=== PATIENT | female | born 1950 | race African-American/Black ===

== ENCOUNTER 2017-05-07 21:32 | Observation (INO) | payer MEDICARE ==
[2017-05-07 22:14] LABS: #Basophils 0.1 thou/uL (0.0-0.2); #Eosinphils 0.1 thou/uL (0.0-0.7); #Lymphocytes 2.7 thou/uL (1.20-3.40); #Monocytes 0.5 thou/uL (0.11-0.59); #Neutrophils 3.2 thou/uL (1.40-6.50); %Basophils 0.8 % (0.0-1.0); %Eosinophils 1.9 % (0.0-10.0); %Lymphocytes 41.1 % (21.0-51.0); %Monocytes 7.4 % (0.0-10.0); %Neutrophils 48.8 % (42.0-75.0); Hemoglobin 13.4 g/dL (12.0-16.0); Mean Corpuscular HGB CONC 31.1 g/dL (32.0-36.0); Mean Corpuscular Hemoglobin 29.5 pg (27.0-31.0); Mean Corpuscular Volume 94.6 fl (81.0-99.0); Mean Platelet Volume 7.6 fL (7.4-10.4); Platelet Count 318 thou/uL (130-400); RBC Distribution Width 11.7 % (11.5-14.5); Red Blood Cell (RBC) Count 4.55 mill/uL (4.20-5.40); White Blood Cell (WBC) Count 6.6 thou/uL (4.8-10.8)
[2017-05-07 22:39] LABS: Anion Gap 16 mmol/L (10-20); BUN (Urea Nitrogen) 15 mg/dL (9.8-20.1); CK (CPK) 119 U/L (29-168); Calc. Creatinine Clearance 0 mL/min (70-130); Carbon Dioxide 24 mmol/L (23-31); Chloride 106 mmol/L (98-107); Estimated GFR-MDRD Greater than 90; Glucose 88 mg/dL (80-115); Potassium 3.6 mmol/L (3.5-5.1); Sodium 142 mmol/L (136-145)
[2017-05-07 22:41] LABS: CKMB 1.2 ng/mL (0-6.6); Troponin I Less than 0.010 ng/mL (< 0.028)
--- NOTE | 2017-05-07 23:16 | RAD ---
PA AND LATERAL CHEST: 05/07/17 HISTORY: Chest pain and shortness of breath. COMPARISON: 03/10/09 study. The heart size is within normal limits. The aorta is tortuous. The lungs are clear of infiltrates. Th ere are no signs of failure. IMPRESSION: No active intrathoracic disease. POS: [facility]
[2017-05-08] MEDS ORDERED: Morphine 4 MG/ML VIAL ONE (00:40)
[2017-05-08] MEDS ORDERED: Nitroglycerin 2% Ointment 1 INCH/1 GM Packet ONE (00:41)
[2017-05-08 01:58] LABS: Troponin I Less than 0.010 ng/mL (< 0.028)
[2017-05-08] MEDS ORDERED: Acetaminophen 325 MG TAB PO PRN (02:28)
[2017-05-08 02:33] VITALS: BMI 53.2
[2017-05-08] MEDS ORDERED: PROVENTIL INHALER 6.7 G (200 INHALATIONS) INH PRN (04:24)
[2017-05-08] MEDS ORDERED: Nitroglycerin 0.4 MG TAB (25 Tab Bottle) SL PRN (04:24)
[2017-05-08] MEDS ORDERED: HYDROcodone/Acetaminophen 10/325 mg Tablet PO PRN (04:24)
[2017-05-08] MEDS ORDERED: Albuterol Sulfate 2.5 mg/3 ml Neb IPPB PRN (04:26)
--- NOTE | 2017-05-08 05:21 | HP-2 ---
CODE STATUS: FULL. PRIMARY CARE PHYSICIAN: Dr. Elzbieta Guzman ATTENDING PHYSICIAN: Dr. Duncan Cardoza RESIDENT PHYSICIAN: Dr. Val Geronimo CHIEF COMPLAINT: Chest pain. HISTORY OF PRESENT ILLNESS: This is a 66-year-old female with past medical history of hypertension, hyperlipidemia, and tobacco abuse that presents with chest pain which started the day prior to arriva l in the emergency department. The patient states that it is located over the left side of the chest . It is intermittent in nature and is not exacerbated by any known factors. The patient denies any radiation of symptoms into the arm or jaw. She had experienced similar symptoms in the past and has been worked up approximately a year and a half ago with a cardiac catheterization, a stress test and an echocardiogram. Cardiac catheterization was negative, but echo did show an ejection fraction of 4 0-45% at that time. The patient does endorse cough, congestion and rhinorrhea for the past week. Th e patient does note that her chest pain is worsened with coughing. The patient was given aspirin in the emergency department. She had not yet received nitro or morphine so we are unable to ascertain w hether or not these medications would provide her relief of symptoms. On evaluation, the patient was relatively asymptomatic. Of note, she did describe the chest pain as a heavy pressure on the left a spect of her chest. PAST MEDICAL HISTORY: 1. Osteoarthritis. 2. Tobacco abuse. 3. Chronic pain. 4. Asthma. 5. Morbid obesity. 6. Gastroesophageal reflux disease. 7. Depression. 8. Vitamin D deficiency. 9. Hypertension. 10. Hyperlipidemia. 11. Systolic congestive heart failure with ejection fraction of 40-45%. PAST SURGICAL HISTORY: 1. Cholecystectomy in 2009. 2. Hysterectomy in 1998. 3. Left knee replacement in 2005. 4. Right total knee replacement in 2010. 5. EGD in 2008. 6. Ectopic . ALLERGIES: No known drug allergies. MEDICATIONS: 1. ProAir 108 mcg 1-2 puffs every 4 hours as needed for shortness of breath. 2. Hydrocodone/acetaminophen 10/325 mg oral tablet twice daily as needed for severe pain. 3. Tramadol q.8h. as needed for pain. 4. Ipratropium albuterol 0.5-2.5 mg per 3 mL inhalation solution nebulizer to be used b.i.d. as need ed for shortness of breath. 5. Losartan potassium 25 mg daily. 6. Sucralfate t.i.d. 7. Pantoprazole 40 mg delayed release daily. 8. Meclizine t.i.d. for dizziness. 9. Atorvastatin calcium 80 mg at bedtime. 10. Aspirin 81 mg delayed release daily. 11. Coreg 6.25 mg b.i.d. 12. Gabapentin 300 mg b.i.d. 13. Cetirizine 10 mg daily. 14. Vitamin D3 50,000 units oral tablet twice a week for 8 weeks. 15. Klor-Con 20 mEq oral packet daily. 16. Naprosyn 500 mg oral tablet b.i.d. p.r.n. 17. Carisoprodol 250 mg b.i.d. p.r.n. 18. Duloxetine 30 mg delayed release daily. FAMILY HISTORY: Noncontributory. SOCIAL HISTORY: The patient endorses dipping and chewing tobacco. She states that she chews 2 cans per week. The patient denies alcohol or drug use. REVIEW OF SYSTEMS: Twelve point review of systems was performed, all were negative except as listed in the HPI and as indicated below. The patient does endorse a 1 week history of nasal congestion, rh inorrhea, cough, congestion. She has had some associated shortness of breath, particularly when lyin g flat. The patient has noticed some lower extremity swelling which has progressed over the past cou ple of days. The patient endorses a history of arthritis and currently has right shoulder pain. PHYSICAL EXAMINATION: VITAL SIGNS: Blood pressure 134/74, pulse 79, respiratory rate 20, T-max 97.7, pulse ox 95% on room air. Current weight 133 kilograms. GENERAL: Patient is alert and oriented x3, no acute distress. Well-developed, well-nourished, obese , appropriately interactive. EYES: Pupils equally round, reactive to light and accommodation. Extraocular muscles intact. ENT: Nasal mucosa within normal limit. NECK: Supple. CARDIOVASCULAR: Regular rate and rhythm. No murmurs. Radial and pedal pulses 2+. RESPIRATORY: No rmal effort, no retractions. There were some expiratory wheezing in the upper lobes. SKIN: Warm and dry, no lesions or cyanosis. ABDOMEN: Soft, nontender to palpation. Bowel sounds positive in all 4 quadrants. No masses or dist ention. EXTREMITIES: No clubbing or cyanosis, there was trace edema bilaterally in the lower extremities. MUSCULOSKELETAL: Structure within normal limits. Tone within normal limits. Patient was tender to palpation over left anterior ribcage. NEUROLOGIC: No focal deficits. GCS 15. PSYCHIATRIC: Appropriate. LABORATORY DATA: WBC 6.6, hemoglobin 13.4, hematocrit 42.0, platelets 318. Sodium 142, potassium 3.6, chloride 106, bicarb 24, BUN 15, creatinine 0.78, glucose 88, calcium 9.0. Chest x-ray no acute process. EKG; normal sinus rhythm. ASSESSMENT AND PLAN: This is a 66-year-old female with past medical history of hypertension, hyperli pidemia, tobacco abuse who presents with chest pain. 1. Atypical chest pain. The patient was admitted to telemetry for observation. The patient does [place]cle[place] a heart score of 5. She will undergo a pharmacologic stress test in the a.m. EKG shows normal si nus rhythm. We will continue to trend the cardiac enzymes x3. All cardiac enzymes at this point hav e been negative. TSH is pending. The patient had a recent fasting lipid panel done in clinic in [facility]. Last hemoglobin A1c was over a year ago. However, her blood glucose was 88 today and last he moglobin A1c was 4.9. The patient was given nitro and morphine p.r.n. 2. Hypertension. Continue home medications. 3. Asthma. Albuterol nebulizers q.4h. p.r.n. for cough, shortness of breath or wheezing. 4. Tobacco abuse, counseled on cessation. 5. Gastroesophageal reflux disease. Continue home medications. 6. Hyperlipidemia. Continue home medications. 7. Congestive heart failure with ejection fraction of 40-45%. Last echo was done in 11/2015. The p atient does not appear to be fluid overloaded. We will continue LISSETTE inhibitor and beta pati. 8. Deep venous thrombosis prophylaxis, SCDs. DISPOSITION AND LENGTH OF HOSPITAL STAY: One day. Symptomatic medications will be provided. History and physical exam as well as management discussed with Dr. Duncan Cardoza.
[2017-05-08 05:38] LABS: Troponin I Less than 0.010 ng/mL (< 0.028)
[2017-05-08] MEDS: Aspirin 325 MG TAB PO SCH (09:21)
[2017-05-08] MEDS: Atorvastatin Calcium 40 MG TAB PO SCH (09:22)
[2017-05-08 10:00] LABS: Bilirubin Negative (Negative); Blood, Urine Small (Negative); Clarity TURBID (Clear); Glucose, Urine (Dipstick) Negative (Negative); Leukocyte Small (Negative); Nitrite Negative (Negative); Protein, Urine (Dipstick) Negative (Neg-Trace); Specific Gravity, Urine 1.015 (1.002-1.036)
[2017-05-08 10:01] LABS: Bacteria/HPF 2+ HPF (None Seen); Hyaline Casts/LPF 0-3 HYALINE CAST LPF (0-3 Hyaline); Pathc Cast-AUWi Flag 0.13 (0-2.49); WBC/HPF 0-3 HPF (0-3)
[2017-05-08 10:08] LABS: Yeast-AUWi Flag 170.2 (0-25.0)
[2017-05-08 10:27] LABS: Yeast-All Forms None Seen HPF (None Seen)
[2017-05-08 10:28] LABS: Crystals/HPF None Seen HPF (Negative)
[2017-05-08] MEDS: Potassium Chloride 20 MEQ TAB PO SCH ×2 (13:55→17:10)
[2017-05-08] MEDS: Losartan Potassium 25 MG TAB PO SCH (13:59)
[2017-05-08] MEDS ORDERED: Regadenoson 0.4 MG/5 ML SYRINGE ONE (15:29)
[2017-05-08] MEDS: Apixaban 5 MG TAB PO SCH (20:15)
[2017-05-08] MEDS ORDERED: Enoxaparin Sodium 100 MG/ML SYRINGE SC SCH (21:00)
[2017-05-09 08:18] VITALS: BP 115/58
[2017-05-09 08:20] VITALS: TEMP 98.4
--- NOTE | 2017-05-09 08:37 | PDOC.FM ---
- Subjective Subjective: Pt seen at bedside in NAD. DAVID overnight. Pt denies any recurrence of CP or discomfort. Pt denies BIGGS, CP, SOB, NVD. - Objective MAR Reviewed: Yes Vital Signs & Weight: Vital Signs (12 hours) Temp Pulse Resp BP BP BP BP 05/09/17 08:00 98.4 F 70 16 05/09/17 07:33 98.1 F 73 16 115/58 L 120/62 106/68 117/58 L 05/09/17 03:24 98.4 F 70 16 105/58 L Pulse Ox 05/09/17 08:00 05/09/17 07:33 95 05/09/17 03:24 94 L Weight Weight 133.628 kg I&O: 05/08/17 05/09/17 05/10/17 06:59 06:59 06:59 Intake Total 0 1080 Output Total 1040 Balance 0 40 Result Diagrams: 05/07/17 22:04 05/07/17 22:04 <Rk Cottrell - Last Filed: 05/09/17 08:45> - Objective Vital Signs & Weight: Weight Weight 133.628 kg I&O: 05/09/17 05/10/17 05/11/17 06:59 06:59 06:59 Intake Total 1080 Output Total 1040 Balance 40 Result Diagrams: 05/07/17 22:04 05/07/17 22:04 <Milton Weldon - Last Filed: 05/10/17 14:58> Phys Exam - Physical Examination Constitutional: NAD morbidly obese HEENT: moist MMs Neck: full ROM Respiratory: no rales, no rhonchi, clear to auscultation bilateral Cardiovascular: RRR, no significant murmur Gastrointestinal: soft, non-tender, positive bowel sounds Musculoskeletal: pulses present, edema present trace edema legs BL Neurological: non-focal, moves all 4 limbs Psychiatric: A&O x 3 Skin: cap refill <2 seconds <Rk Cottrell - Last Filed: 05/09/17 08:45> Dx/Plan (1) Atypical chest pain Code(s): R07.89 - OTHER CHEST PAIN Status: Acute Plan: -pt presented with intermittent c/o atypical CP -pt has multiple risk factors and hx of sCHF with recent EF 40-45%. with HEART score 5, NM stress test ordered -pt had coreg held on admission ahead of stress test -on 05/08 after medication portion of stress test, pt noted to have arrhythmia on telemetry -after discussing with pt, states she has hx of irregular rhythm and has seen EP before -pt has had no recurrence of CP since admission -arrhythmia likely 2/2 holding of coreg and stress test -pending completion of second portion of stress test this AM -resume home medications including coreg -continue to monitor (2) Hypertension Code(s): I10 - ESSENTIAL (PRIMARY) HYPERTENSION Status: Chronic QualifierTitle: Hypertension type: unspecified Qualified Code(s): I10 - Essential (primary) hypertension Plan: -continue home medications (3) Asthma Code(s): J45.909 - UNSPECIFIED ASTHMA, UNCOMPLICATED Status: Chronic QualifierTitle: Asthma severity: unspecified severity Asthma persistence : unspecified Asthma complication type: unspecified Qualified Code(s): J45.909 - Unspecified asthma, uncomplicated Plan: -continue home medications (4) Degenerative joint disease Code(s): M19.90 - UNSPECIFIED OSTEOARTHRITIS, UNSPECIFIED SITE Status: Chronic QualifierTitle: Osteoarthritis type: unspecified Laterality: unspecified laterality Plan: -continue home medications (5) HLD (hyperlipidemia) Code(s): E78.5 - HYPERLIPIDEMIA, UNSPECIFIED Status: Chronic QualifierTitle: Hyperlipidemia type: unspecified Qualified Code(s): E78.5 - Hyperlipidemia, unspecified Plan: -continue home medications (6) Morbid obesity Code(s): E66.01 - MORBID (SEVERE) OBESITY DUE TO EXCESS CALORIES Status: Chronic - Plan Plan: dispo: Pt stable and doing well. No recurrence of CP. Pt reportedly has hx of arrhythmia and has seen EP in past. Pending completion of stress test this AM, possible discharge on continued home coreg. Cardiology recs greatly appreciated. Continue to monitor. <Rk Cottrell - Last Filed: 05/09/17 08:45> Attending Addendum - Attending Addendum I personally evaluated the patient and discussed the management with Dr. Cottrell on 05/09/17. I agree with the History, Examination, Assessment and Plan documented above with any addition or exceptions noted below. Pt. with h/o dysrrhthmia here with atypical CP. Now Pain-free w/o recurrence of symptoms. Missed dose of home med and developed A-fib, resolved after resumption of home med. Cardiolyte normal. May d/c home if BP tolerates meds this p.m. <Milton Weldon - Last Filed: 05/10/17 14:58>
[2017-05-09] MEDS: Atorvastatin Calcium 40 MG TAB PO SCH (09:25)
[2017-05-09] MEDS: Potassium Chloride 20 MEQ TAB PO SCH (09:25)
[2017-05-09] MEDS: Apixaban 5 MG TAB PO SCH (09:26)
[2017-05-09] MEDS: Losartan Potassium 25 MG TAB PO SCH (09:26)
[2017-05-09] MEDS: Aspirin 325 MG TAB PO SCH (09:26)
--- NOTE | 2017-05-09 10:07 | NM ---
CARDIAC SPECT: HISTORY: A 66-year-old female with chest pain, hypertension, hyperlipidemia, and CHF. TECHNIQUE: A myocardial perfusion scan was performed using the single isotope two day protocol with 33 millicuri es of technetium 99m sestamibi injected intravenously for rest and stress images. Pharmacologic stre ss with Lexiscan was monitored and interpreted by Dr. Ni. FINDINGS: Fairly homogeneous tracer distribution is seen in the myocardial segments without fixed or reversible defects. GATED SPECT LVEF: 49% WALL MOTION EXAM: No segmental wall motion abnormalities are seen. IMPRESSION: No evidence of reversible ischemia. POS: [facility]
[2017-05-09] MEDS ORDERED: traMADol HCl 50 MG TAB PO PRN (10:57)
[2017-05-09] MEDS ORDERED: Non-Formulary Item 1 EACH (Tizanidine Hcl [Zanaflex] 4 MG) PO PRN (10:57)
[2017-05-09] MEDS ORDERED: Carvedilol 3.125 MG TAB PO SCH (17:00)
[2017-05-09] MEDS ORDERED: Gabapentin 100 MG CAP PO SCH (21:00)
--- NOTE | 2017-05-09 21:09 | DIS-2 ---
DATE OF ADMISSION: 05/07/2017 DATE OF DISCHARGE: 05/09/2017 RESIDENT: Rk Cottrell M.D. ADMITTING ATTENDING: Dr. Duncan Cardoza. DISCHARGE ATTENDING: Dr. Milton Weldon. CONSULTS: None. PROCEDURES: 1. Chest x-ray performed on 05/08/2017, showed no active intrathoracic disease. 2. Nuclear stress test performed on 05/08/2017, showed no evidence of reversible ischemia with an ejection fraction of 49%. PRIMARY DIAGNOSES: 1. Atypical chest pain likely secondary to arrhythmia due to holding of home beta pati. 2. Suspected chronic atrial fibrillation. 3. Systolic congestive heart failure with ejection fraction of 40%-45%. 4. Osteoarthritis. 5. Tobacco abuse. 6. Chronic pain. 7. Asthma. 8. Morbid obesity. 9. Gastroesophageal reflux disease. 10. Chronic depression. 11. Vitamin D deficiency. 12. Hypertension. 13. Hyperlipidemia. DISCHARGE MEDICATIONS: 1. Apixaban 5 mg p.o. b.i.d. 2. Albuterol 1 puff inhaled q.4 hours p.r.n. 3. Tramadol 50 mg p.o. q.6 hours p.r.n. 4. Hydrocodone 10/325 one tab p.o. b.i.d. p.r.n. 5. Gabapentin 300 mg p.o. b.i.d. 6. Tizanidine 4 mg p.o. b.i.d. p.r.n. 7. Potassium chloride 20 mEq p.o. b.i.d. 8. Carvedilol 6.25 mg p.o. b.i.d. with meals. 9. Atorvastatin 40 mg p.o. at bedtime. 10. Losartan 25 mg p.o. daily. 11. Duloxetine 30 mg p.o. daily. 12. Aspirin 81 mg p.o. daily. HISTORY OF PRESENT ILLNESS AND HOSPITAL COURSE: Patient is a very pleasant 66- year-old -[place] female who initially presented to the hospital with complaints of atypical chest pain. Due to the patient's risk factors and significant heart score of 5, patient was admitted for observation and a nuclear medicine stress test. After completing the initial portion of the nuclear stress test, the patient did experience a short run of atrial fibrillation/flutter on telemetry. This was thought to be secondary to holding of her home beta-pati. After inquiring with the patient, she has a history of arrhythmia in the past, for which she has seen boat cleaner. She states this is why she was started on her Coreg. With restarting of the patient 's Coreg after her stress test, the patient had no recurrence of her arrhythmia and had no point during her hospitalization, had any recurrence of her chest pain. With completion of her stress test resulting normal and resolution of her home medications, it was deemed the patient was stable for discharge and that her arrhythmias likely caused by holding her medications. Due to her reported history of atrial fibrillation and her having seen an boat cleaner in the past, the patient was started on apixaban as stated above. The patient's CHADS-VASc score was 4. The patient's hospital course was otherwise uncomplicated. DISPOSITION: Stable. DISCHARGE INSTRUCTIONS: 1. Location: Home. 2. Diet: Heart healthy, low-sodium diet. 3. Activity: As tolerated. 4. Followup: The patient was instructed to follow up with her primary care physician, Dr. Elzbieta Guzman within 1 week to review hospital stay and chronic medical conditions. The patient was also encouraged to follow up with her macerator operator, Dr. Ni within 1-2 weeks to review hospital stay and adequate control of her chronic cardiac conditions. YUNI
--- NOTE | 2017-05-11 13:34 | STRESS ---
Acquisition Time: 2017-05-08 10:45:56 Total Exercise Time: 00:01:00 Test Indications: CHEST PAIN Medications: Protocol: LEXISCAN Max HR: 112 BPM 72% of Pred: 154 BPM Max BP: 128/076 mmHG Max Work Load: 1.0 METS RESTING ECG: NORMAL SINUS RHYTHM AT 73 WITH RARE PACs SYMPTOMS: NONE APPROPRIATE BLOOD PRESSURE RESPONSE FOR LEXISCAN ECTOPY: NONE ECG RESPONSE: [address] DEPRESSION INTERPRETATION: POSITIVE ECG/AWAIT NUCLER IMAGES FOR DEFINITIVE DIAGNOSIS Confirmed by SALENA PULIDO MD ([id number]) on 05/11/2017 1:34:09 PM Referred By: Eva MORALEZ Confirmed By:SALENA PULIOD MD
== END 2017-05-09 11:43 | disposition home or self-care (01) ==
LOC: ERS 21:32 → ERHOLD 23:55 → 2SW 05-08 02:00
PROVIDERS: ADMIT Family Medicine; ATTEND Family Medicine
DX: R07.89 Other chest pain (principal); I11.0 Hypertensive heart disease with heart failure; I50.20 Unspecified systolic (congestive) heart failure; M19.90 Unspecified osteoarthritis, unspecified site; K21.9 Gastro-esophageal reflux disease without esophagitis; F32.9 Major depressive disorder, single episode, unspecified; E55.9 Vitamin D deficiency, unspecified; E78.5 Hyperlipidemia, unspecified; F41.9 Anxiety disorder, unspecified; J45.909 Unspecified asthma, uncomplicated; E66.01 Morbid (severe) obesity due to excess calories; Z68.43 Body mass index [BMI] 50.0-59.9, adult; Z79.82 Long term (current) use of aspirin; Z79.899 Other long term (current) drug therapy; Z86.73 Personal history of transient ischemic attack (TIA), and cerebral infarction without residual deficits; Z90.49 Acquired absence of other specified parts of digestive tract; Z98.890 Other specified postprocedural states; Z96.653 Presence of artificial knee joint, bilateral; Z72.0 Tobacco use
CPT/HCPCS: 71020; 78452; 80048; 81001; 82550; 82553; 83880; 84443; 84484 ×3; 85025; 87086; 93005; 93017; 94760; 96374; 99285; A9500; G0378 ×2; 36415; 36416; J2270; J2785

== ENCOUNTER 2017-10-18 23:13 | Emergency (ER) | payer MEDICARE ==
[2017-10-19] MEDS ORDERED: Morphine 10 MG/ML VIAL ONE (04:27)
--- NOTE | 2017-10-19 09:38 | RAD ---
CHEST 1 VIEW: HISTORY: Chest pain. Dizziness. Dyspnea. COMPARISON: 06/25/16. FINDINGS: The cardiac silhouette is magnified by projection. Pulmonary vasculature upper limits of normal. Pr ominence of each hilum is unchanged and may be related to pulmonary arteries. No lobar consolidation or evidence of pneumothorax. court recording monitor leads overlie the chest. IMPRESSION: Stable radiographic appearance of the chest. POS: [facility]
== END 2017-10-19 05:03 | disposition home or self-care (01) ==
LOC: ERS 23:13
DX: M62.838 Other muscle spasm (principal); I10 Essential (primary) hypertension; Z86.73 Personal history of transient ischemic attack (TIA), and cerebral infarction without residual deficits; J45.909 Unspecified asthma, uncomplicated; I48.91 Unspecified atrial fibrillation; F41.9 Anxiety disorder, unspecified; F17.220 Nicotine dependence, chewing tobacco, uncomplicated; Z79.899 Other long term (current) drug therapy
CPT/HCPCS: 71045; 93005; 96372; J2270

== ENCOUNTER 2017-11-01 14:04 | Outpatient (CLI) | payer MEDICARE | END 2017-11-01 14:05 | disposition home or self-care (01) | LOC: BICCT 14:04 | PROVIDERS: ATTEND Family Medicine | DX: M47.22 Other spondylosis with radiculopathy, cervical region (principal); M99.81 Other biomechanical lesions of cervical region; M50.122 Cervical disc disorder at C5-C6 level with radiculopathy | CPT/HCPCS: 72125 ==

== ENCOUNTER → 2017-12-16 | Day surgery (SDC) | payer MEDICARE ==
[~2017-12-16] MED LIST: Iopamidol-M 300 61% 15 ML VIAL ONE
[2017-12-16 07:36] VITALS: TEMP 97.6
--- NOTE | 2017-12-16 11:08 | RAD ---
]2 VIEW CERVICAL SPINE RADIOGRAPH SERIES: Date: 12/16/17 CLINICAL HISTORY: Cervical radiculopathy, neck pain, spondylosis. FINDINGS: Straightening of normal cervical curvature. There is multilevel cervical spondylosis. The cervical sp ine is visualized to the mid C7 level on the lateral view. C7-T1 level not reliably assessed. Mild co rtical irregularity, nonspecific, is seen at the posterior margin of the dens and may be related to c hronic process. There is multilevel end plate osteophytosis, as well as disc space narrowing and face t osteoarthritis. No significant malalignment within the visualized cervical spine. Partial osseous f usion spans the posterior elements of C2-3. IMPRESSION: 1. Multilevel degenerative changes of cervical spine. 2. Slight, nonspecific cortical irregularity involving the posterior confines of the C2 anterior geetha tebral body. POS: [facility]
--- NOTE | 2017-12-16 11:12 | CT ---
CERVICAL MYELOGRAM CT CERVICAL SPINE WITH INTRATHECAL CONTRAST: History: Neck pain with radiculopathy. Fluoro time equals 0.2 minutes. FINDINGS: After explaining the procedure and answering all questions, the lower back was prepped and draped in the usual sterile fashion. Initially, attempt at access of the thecal sac was made under fluoroscopy. Degenerative changes and tissue thickness, however, precluded successful contrast injection. Patient was transferred to the CT suite for localization and contrast placement. Sterile technique, buffered local anesthesia, CT guidance, and a posterior L3-4 approach were used to carefully advance a 22 gau ge [place] needle through the thecal sac. Position was confirmed with CT imaging. A total volume of 8 c c Isovue 300M contrast was instilled into the thecal sac under CT control and needle was removed. Pat ient tolerated the procedure well and was eventually returned to the holding area in good condition f or further monitoring. There is reversal of the normal lordotic curvature of the cervical spine. Disc space narrowing and osteophytosis at each level. Vertebral body heights are maintained. C2-3: Osteophytosis. Central canal and neural foramina are patent. C3-4: Minimal degenerative spondylolisthesis. Thecal sac is patent. Degenerative changes with mild bi lateral foraminal stenoses. C4-5: Mild posterior osteophyte/disc complex without significant central canal stenosis. Osteophytosi s. Neural foramina remain patent. C5-6: Mild posterior osteophyte/disc complex without significant central canal stenosis. Uncal verteb ral and facet hypertrophy with moderate bilateral foraminal stenoses. C6-7: Posterior osteophyte/disc complex and circumferential degenerative changes with mild stenosis o f the central canal and each neural foramen. C7-T1: Mild osteophytosis. Central canal and neural foramina remain patent. IMPRESSION: Multilevel degenerative changes cervical spine. Moderate stenosis most pronounced at each neural fora men of the C5-6 level. Clinical correlation regarding each C6 dermatome is required. POS: [facility]
== END ==
LOC: RAD 07:10
PROVIDERS: ATTEND Neurological Surgery
PROC: B02B1ZZ Computerized Tomography (CT Scan) of Spinal Cord using Low Osmolar Contrast (ICD-10-PCS; principal; 2017-12-16)
DX: M54.2 Cervicalgia (principal); M54.5 Low back pain; M48.02 Spinal stenosis, cervical region; I48.91 Unspecified atrial fibrillation; E66.01 Morbid (severe) obesity due to excess calories; I10 Essential (primary) hypertension; E78.00 Pure hypercholesterolemia, unspecified; F17.210 Nicotine dependence, cigarettes, uncomplicated; Z79.52 Long term (current) use of systemic steroids; Z79.82 Long term (current) use of aspirin; Z79.899 Other long term (current) drug therapy
CPT/HCPCS: 62302; 72040; 72126; 77002

== ENCOUNTER 2018-02-14 10:18 | Outpatient (CLI) | payer MEDICARE | END 2018-02-14 10:19 | disposition home or self-care (01) | LOC: BICMAMMO 10:18 | PROVIDERS: ATTEND Family Medicine | DX: Z12.31 Encounter for screening mammogram for malignant neoplasm of breast (principal) | CPT/HCPCS: 77063; 77067 ==

== ENCOUNTER 2018-07-06 02:19 | Emergency (ER) | payer MEDICARE ==
[2018-07-06] MEDS ORDERED: Dexamethasone 10 MG/ML VIAL ONE (03:18)
--- NOTE | 2018-07-06 09:22 | RAD ---
FRONTAL RADIOGRAPH CHEST: DATE: 07/06/2018. COMPARISON: 10/19/2017. HISTORY: Dyspnea. FINDINGS: There is stable tortuosity and prominence of the thoracic aorta. There is stable enlargement of the right hilar shadow, similar when compared to studies dating back to 12/09/2008 suggesting vascular pro minence. No focal consolidation or alveolar edema. IMPRESSION: Stable appearance of the chest as described above. POS: [facility]
== END 2018-07-06 05:55 | disposition home or self-care (01) ==
LOC: ERS 02:19
DX: J45.901 Unspecified asthma with (acute) exacerbation (principal); M19.90 Unspecified osteoarthritis, unspecified site; I10 Essential (primary) hypertension; F41.9 Anxiety disorder, unspecified; I48.91 Unspecified atrial fibrillation; F17.220 Nicotine dependence, chewing tobacco, uncomplicated; Z86.73 Personal history of transient ischemic attack (TIA), and cerebral infarction without residual deficits; Z79.899 Other long term (current) drug therapy
CPT/HCPCS: 71045; 87804; 96372; J1100; J7620

== ENCOUNTER 2018-07-13 18:49 | Emergency (ER) | payer MEDICARE ==
--- NOTE | 2018-07-13 19:28 | RAD ---
AP VIEW CHEST: 07/13/2018 HISTORY: Chest pain. COMPARISON: 07/06/2018 FINDINGS: AP view chest demonstrates ectasia of the aorta. The lungs are well aerated. No evidence of active intrathoracic disease is seen. No evidence of effusions, pneumonia, or pneumothorax is seen. IMPRESSION: Unremarkable anterior-posterior view chest. POS: [facility]
[2018-07-13 19:45] LABS: #Basophils 0.1 thou/uL (0.0-0.2); #Eosinphils 0.1 thou/uL (0.0-0.7); #Lymphocytes 2.5 thou/uL (1.20-3.40); #Monocytes 0.6 thou/uL (0.11-0.59); #Neutrophils 4.3 thou/uL (1.40-6.50); %Basophils 1.1 % (0.0-1.0); %Eosinophils 1.6 % (0.0-10.0); %Lymphocytes 33.1 % (21.0-51.0); %Monocytes 8.1 % (0.0-10.0); %Neutrophils 56.1 % (42.0-75.0); Hemoglobin 12.8 g/dL (12.0-16.0); Mean Corpuscular HGB CONC 31.6 g/dL (32.0-36.0); Mean Corpuscular Hemoglobin 29.2 pg (27.0-31.0); Mean Corpuscular Volume 92.4 fL (78.0-98.0); Mean Platelet Volume 7.7 fL (7.4-10.4); Platelet Count 315 thou/uL (130-400); RBC Distribution Width 11.9 % (11.5-14.5); White Blood Cell (WBC) Count 7.7 thou/uL (4.8-10.8)
[2018-07-13] MEDS ORDERED: Acetaminophen 500 MG TAB ONE (19:47)
[2018-07-13] MEDS ORDERED: Aspirin Chewable 81 MG TAB ONE (19:47)
[2018-07-13 20:03] LABS: ALT (SGPT) 11 U/L (8-55); AST (SGOT) 14 U/L (5-34); Albumin 3.6 g/dL (3.4-4.8); Alkaline Phosphatase 82 U/L (40-150); Anion Gap 12 mmol/L (10-20); BUN (Urea Nitrogen) 8 mg/dL (9.8-20.1); Bilirubin, Total 0.8 mg/dL (0.2-1.2); CK (CPK) 46 U/L (29-168); Calc. Creatinine Clearance 0 mL/min (70-130); Calcium 8.6 mg/dL (7.8-10.44); Carbon Dioxide 29 mmol/L (23-31); Chloride 104 mmol/L (98-107); Estimated GFR-MDRD Greater than 90; Globulin 3.5 g/dL (2.4-3.5); Glucose 87 mg/dL (80-115); Potassium 3.9 mmol/L (3.5-5.1); Protein, Total 7.1 g/dL (6.0-8.3); Sodium 141 mmol/L (136-145)
[2018-07-13] MEDS ORDERED: Famotidine/PF 20 mg/2ml Vial ONE (21:12)
[2018-07-13] MEDS ORDERED: Lidocaine Viscous Sol 2% 15 ml UD Cup ONE (21:12)
[2018-07-13] MEDS ORDERED: Mag-Al 1200 mg/1200 mg/30 ML UDCUP ONE (21:12)
[2018-07-13 22:49] LABS: Troponin I Less than 0.010 ng/mL (< 0.028)
== END 2018-07-13 23:07 | disposition home or self-care (01) ==
LOC: ERS 18:49
DX: R07.89 Other chest pain (principal); K21.9 Gastro-esophageal reflux disease without esophagitis; I10 Essential (primary) hypertension; Z86.73 Personal history of transient ischemic attack (TIA), and cerebral infarction without residual deficits; J45.909 Unspecified asthma, uncomplicated; I48.91 Unspecified atrial fibrillation; F41.9 Anxiety disorder, unspecified; F32.9 Major depressive disorder, single episode, unspecified; F17.220 Nicotine dependence, chewing tobacco, uncomplicated; Z79.899 Other long term (current) drug therapy; Z79.01 Long term (current) use of anticoagulants
CPT/HCPCS: 36415; 71045; 80053; 82550; 83880; 84484; 85025; 93005; S0028

== ENCOUNTER 2018-08-11 16:19 | Outpatient (CLI) | payer MEDICARE ==
--- NOTE | 2018-08-11 16:39 | RAD ---
FExam: 3 views cervical spine COMPARISON: 12/16/2017 HISTORY: Cervical radiculopathy FINDINGS: Limited evaluation of the cervical spine in the neutral position. Straightening of normal c ervical lordosis. No significant motion upon extension or flexion Predental space is normal. No prevertebral soft tissue swelling Mild loss of disc space height and osteophyte formation at C5-C6, C6-C7. Limited evaluation of the ce rvicothoracic junction. IMPRESSION: 1. Mild degenerative changes at C5-C6 and C6-C7. 2. No spondylolisthesis or spondylolysis. Straightening of normal cervical lordosis in the neutral po sition. Findings may be due to patient position or muscle spasm.
== END 2018-08-11 16:20 | disposition home or self-care (01) ==
LOC: BICRAD 16:19
PROVIDERS: ATTEND Neurological Surgery
DX: M47.22 Other spondylosis with radiculopathy, cervical region (principal)
CPT/HCPCS: 72040

== ENCOUNTER 2018-10-31 17:33 | Emergency (ER) | payer MEDICARE ==
[2018-10-31] MEDS ORDERED: Ibuprofen 800 MG TAB ONE (18:07)
--- NOTE | 2018-10-31 18:12 | RAD ---
XR Ankle Lt 3 View STANDARD History: Trauma Comparison: None. Findings: Moderate degenerative disease of the medial ankle mortise. No acute fracture or malalignmen t. Soft tissue phleboliths. Soft tissue swelling. Moderate plantar calcaneal spur. Mild vascular calcifications. Impression: Chronic findings. No acute abnormality.
--- NOTE | 2018-10-31 18:13 | RAD ---
XR Chest 1 View Portable History: Trauma Comparison: Radiograph July 13, 2018 Findings: Mild ectasia of the descending thoracic aorta. Heart size mildly enlarged. No pneumothorax. No effusion. No acute osseous abnormality. Impression: Mild cardiomegaly and aortic ectasia.
== END 2018-10-31 18:30 | disposition home or self-care (01) ==
LOC: ERS 17:33
DX: S20.212A Contusion of left front wall of thorax, initial encounter (principal); S90.02XA Contusion of left ankle, initial encounter; F41.9 Anxiety disorder, unspecified; F32.9 Major depressive disorder, single episode, unspecified; K21.9 Gastro-esophageal reflux disease without esophagitis; I11.0 Hypertensive heart disease with heart failure; I50.9 Heart failure, unspecified; I48.91 Unspecified atrial fibrillation; Z86.73 Personal history of transient ischemic attack (TIA), and cerebral infarction without residual deficits; J45.909 Unspecified asthma, uncomplicated; M19.90 Unspecified osteoarthritis, unspecified site; V49.40XA Driver injured in collision with unspecified motor vehicles in traffic accident, initial encounter
CPT/HCPCS: 71045; 93005

== ENCOUNTER 2020-02-04 08:57 | Outpatient (CLI) | payer OTHER ==
--- NOTE | 2020-02-04 11:27 | MMO ---
Bilateral MAMMO Bilat Screen [facility]. CLINICAL HISTORY: Patient is 69 years old and is seen for screening. The patient has no family history of breast cancer. The patient has no personal history of cancer. VIEWS: The views performed were: bilateral craniocaudal; bilateral craniocaudal with tomosynthesis; bilateral mediolateral oblique; and bilateral mediolateral oblique with tomosynthesis. FILMS COMPARED: The present examination has been compared to prior imaging studies performed at [facility] on 05/18/2014, 11/15/2015, 01/23/2017 and 02/14/2018. This study has been interpreted with the assistance of computer-aided detection. MAMMOGRAM FINDINGS: There are scattered fibroglandular densities. There are no suspicious masses, suspicious calcifications, or new areas of architectural distortion. IMPRESSION: THERE IS NO MAMMOGRAPHIC EVIDENCE OF MALIGNANCY. A ROUTINE FOLLOW-UP MAMMOGRAM IN 1 YEAR IS RECOMMENDED. THE RESULTS OF THIS EXAM WERE SENT TO THE PATIENT. ACR BI-RADS Category 1 - Negative MAMMOGRAPHY NOTE: 1. A negative mammogram report should not delay a biopsy if a dominant of clinically suspicious mass is present. 2. Approximately 10% to 15% of breast cancers are not detected by mammography. 3. Adenosis and dense breasts may obscure an underlying neoplasm. Reported by: OSVALDO MONTANA MD Electonically Signed: [id number]
== END 2020-02-04 08:58 | disposition home or self-care (01) ==
LOC: BICMAMMO 08:57
PROVIDERS: ATTEND Family Medicine
DX: Z12.31 Encounter for screening mammogram for malignant neoplasm of breast (principal)
CPT/HCPCS: 77063; 77067

== ENCOUNTER 2020-08-15 18:03 | Emergency (ER) | payer MEDICARE ==
[2020-08-15 19:17] LABS: #Eosinphils 0.2 thou/uL (0.0-0.7); #Lymphocytes 2.1 thou/uL (1.20-3.40); #Monocytes 0.6 thou/uL (0.11-0.59); #Neutrophils 2.7 thou/uL (1.40-6.50); %Basophils 0.4 % (0.0-1.0); %Eosinophils 3.9 % (0.0-10.0); %Lymphocytes 37.3 % (21.0-51.0); %Monocytes 9.9 % (0.0-10.0); %Neutrophils 48.5 % (42.0-75.0); Hemoglobin 12.1 g/dL (12.0-16.0); Mean Corpuscular HGB CONC 31.8 g/dL (32.0-36.0); Mean Corpuscular Hemoglobin 30.6 pg (27.0-31.0); Mean Platelet Volume 7.7 fL (7.4-10.4); Platelet Count 240 thou/uL (130-400); RBC Distribution Width 11.5 % (11.5-14.5); Red Blood Cell (RBC) Count 3.96 mill/uL (4.20-5.40); White Blood Cell (WBC) Count 5.6 thou/uL (4.8-10.8)
[2020-08-15 19:56] LABS: AST (SGOT) 11 U/L (5-34); Albumin 3.6 g/dL (3.4-4.8); Alkaline Phosphatase 71 U/L (40-110); Anion Gap 14 mmol/L (10-20); BUN (Urea Nitrogen) 13 mg/dL (9.8-20.1); Bilirubin, Total 0.5 mg/dL (0.2-1.2); Calc. Creatinine Clearance 0 mL/min (70-130); Calcium 8.5 mg/dL (7.8-10.44); Carbon Dioxide 22 mmol/L (23-31); Chloride 109 mmol/L (98-107); Globulin 3.1 g/dL (2.4-3.5); Glucose 78 mg/dL (80-115); Potassium 3.9 mmol/L (3.5-5.1); Protein, Total 6.7 g/dL (5.8-8.1); Sodium 141 mmol/L (136-145)
[2020-08-15 20:37] LABS: ALT (SGPT) Less than 7 U/L (8-55)
[2020-08-15] MEDS ORDERED: HYDROcodone/Acetaminophen 10/325 mg Tablet ONE (23:00)
== END 2020-08-15 23:11 | disposition home or self-care (01) ==
LOC: ERS 18:03
DX: M79.662 Pain in left lower leg (principal); M25.572 Pain in left ankle and joints of left foot; K21.9 Gastro-esophageal reflux disease without esophagitis; J44.9 Chronic obstructive pulmonary disease, unspecified; H10.9 Unspecified conjunctivitis; E78.5 Hyperlipidemia, unspecified; I48.91 Unspecified atrial fibrillation; I11.0 Hypertensive heart disease with heart failure; I50.9 Heart failure, unspecified; Z86.73 Personal history of transient ischemic attack (TIA), and cerebral infarction without residual deficits; Z79.899 Other long term (current) drug therapy
CPT/HCPCS: 36415; 71045; 80053; 83880; 85025

== ENCOUNTER 2020-10-22 19:30 | Outpatient (CLI) | payer MEDICARE | END 2020-10-22 19:31 | disposition home or self-care (01) | LOC: SLEEPLAB 19:30 | PROVIDERS: ATTEND Physician Assistant | DX: G47.33 Obstructive sleep apnea (adult) (pediatric) (principal); K21.9 Gastro-esophageal reflux disease without esophagitis; I10 Essential (primary) hypertension; R06.83 Snoring; G47.00 Insomnia, unspecified; G47.10 Hypersomnia, unspecified | CPT/HCPCS: 95810 ==

== ENCOUNTER 2020-11-12 19:00 | Outpatient (CLI) | payer MEDICARE | END 2020-11-12 19:01 | disposition home or self-care (01) | LOC: SLEEPLAB 19:00 | PROVIDERS: ATTEND Physician Assistant | DX: G47.33 Obstructive sleep apnea (adult) (pediatric) (principal); K21.9 Gastro-esophageal reflux disease without esophagitis; I10 Essential (primary) hypertension; R06.83 Snoring; G47.10 Hypersomnia, unspecified; E66.9 Obesity, unspecified; Z68.43 Body mass index [BMI] 50.0-59.9, adult | CPT/HCPCS: 95811 ==

== ENCOUNTER 2021-07-14 10:50 | Outpatient (CLI) | payer MEDICARE | END 2021-07-14 10:51 | disposition home or self-care (01) | LOC: BICMAMMO 10:50 | PROVIDERS: ATTEND Family Medicine | DX: Z12.31 Encounter for screening mammogram for malignant neoplasm of breast (principal) | CPT/HCPCS: 77063; 77067 ==

== ENCOUNTER 2021-09-14 19:30 | Outpatient (CLI) | payer MEDICARE | END 2021-09-14 19:31 | disposition home or self-care (01) | LOC: SLEEPLAB 19:30 | PROVIDERS: ATTEND Internal Medicine Pulmonary Disease | DX: G47.33 Obstructive sleep apnea (adult) (pediatric) (principal); G47.61 Periodic limb movement disorder; R53.83 Other fatigue; R09.89 Other specified symptoms and signs involving the circulatory and respiratory systems; R51.9 Headache, unspecified; I48.91 Unspecified atrial fibrillation; R06.83 Snoring; G47.10 Hypersomnia, unspecified; G47.00 Insomnia, unspecified; E66.9 Obesity, unspecified; Z68.43 Body mass index [BMI] 50.0-59.9, adult | CPT/HCPCS: 95810 ==

== ENCOUNTER 2021-11-07 19:30 | Outpatient (CLI) | payer MEDICARE | END 2021-11-07 19:31 | disposition home or self-care (01) | LOC: SLEEPLAB 19:30 | PROVIDERS: ATTEND Internal Medicine Pulmonary Disease | DX: G47.33 Obstructive sleep apnea (adult) (pediatric) (principal); G47.61 Periodic limb movement disorder; R53.83 Other fatigue; R09.89 Other specified symptoms and signs involving the circulatory and respiratory systems; R51.9 Headache, unspecified; I48.91 Unspecified atrial fibrillation; R06.83 Snoring; E66.9 Obesity, unspecified; G47.10 Hypersomnia, unspecified; Z68.43 Body mass index [BMI] 50.0-59.9, adult | CPT/HCPCS: 95811 ==

== ENCOUNTER 2023-06-08 14:24 | Emergency (ER) | payer OTHER ==
[2023-06-08] MEDS ORDERED: Ketorolac Tromethamine 30 MG (1 mL) VIAL ONE (16:02)
[2023-06-08] MEDS ORDERED: predniSONE 20 MG TAB ONE (16:03)
== END 2023-06-08 16:13 | disposition home or self-care (01) ==
LOC: ERS 14:24
DX: R07.89 Other chest pain (principal); J44.9 Chronic obstructive pulmonary disease, unspecified; I11.0 Hypertensive heart disease with heart failure; I50.9 Heart failure, unspecified; F17.220 Nicotine dependence, chewing tobacco, uncomplicated
CPT/HCPCS: 71045; 96372; J1885; J7512

== ENCOUNTER 2023-06-28 11:33 | Outpatient (CLI) | payer OTHER | END 2023-06-28 11:34 | disposition home or self-care (01) | LOC: BICMAMMO 11:33 | PROVIDERS: ATTEND Family Medicine | DX: Z12.31 Encounter for screening mammogram for malignant neoplasm of breast (principal); Z13.820 Encounter for screening for osteoporosis; M81.0 Age-related osteoporosis without current pathological fracture; M85.831 Other specified disorders of bone density and structure, right forearm; Z78.0 Asymptomatic menopausal state | CPT/HCPCS: 77063; 77067; 77080 ==

== ENCOUNTER 2024-02-04 08:41 | Outpatient (CLI) | payer OTHER | END 2024-02-04 08:42 | disposition home or self-care (01) | LOC: ULT 08:41 | PROVIDERS: ATTEND Family Medicine | DX: E04.2 Nontoxic multinodular goiter (principal) | CPT/HCPCS: 76536 ==

== ENCOUNTER → 2024-03-24 | Day surgery (SDC) | payer OTHER | LOC: ULT 12:31 | PROVIDERS: ATTEND Family Medicine | PROC: 0G9G3ZZ Drainage of Left Thyroid Gland Lobe, Percutaneous Approach (ICD-10-PCS; principal; 2024-03-24) | DX: E04.1 Nontoxic single thyroid nodule (principal) | CPT/HCPCS: 10005; 88173; 88305 ==

== ENCOUNTER 2024-04-23 05:58 | Day surgery (SDC) | payer OTHER ==
[2024-04-22 12:36] VITALS: BMI 55.0
[2024-04-23] MEDS ORDERED: Lidocaine 1% MPF 2 ML VIAL ONE (06:13)
[2024-04-23] MEDS ORDERED: PROPOFOL 20 ML ONE ×2 (08:48→09:03)
== END 2024-04-23 10:38 | disposition home or self-care (01) ==
LOC: SDC 05:58
PROVIDERS: ATTEND Internal Medicine Gastroenterology
PROC: 0DBN8ZZ Excision of Sigmoid Colon, Via Natural or Artificial Opening Endoscopic (ICD-10-PCS; principal; 2024-04-23)
PROC: 0DJ08ZZ Inspection of Upper Intestinal Tract, Via Natural or Artificial Opening Endoscopic (ICD-10-PCS; 2024-04-23)
DX: D12.5 Benign neoplasm of sigmoid colon (principal); K21.9 Gastro-esophageal reflux disease without esophagitis; K44.9 Diaphragmatic hernia without obstruction or gangrene; K57.30 Diverticulosis of large intestine without perforation or abscess without bleeding; K31.7 Polyp of stomach and duodenum; I11.0 Hypertensive heart disease with heart failure; I50.9 Heart failure, unspecified; E78.00 Pure hypercholesterolemia, unspecified; J45.909 Unspecified asthma, uncomplicated; F41.9 Anxiety disorder, unspecified; F32.A Depression, unspecified; F17.200 Nicotine dependence, unspecified, uncomplicated; Z79.01 Long term (current) use of anticoagulants; Z79.899 Other long term (current) drug therapy
CPT/HCPCS: 43235; 45385; J2704; 88305

== ENCOUNTER 2025-01-20 19:28 | Inpatient (IN) | payer OTHER ==
[2025-01-20 21:16] LABS: #Basophils Less than 0.03 10x3/uL (0.0-0.2); #Eosinophils 0.23 10x3/uL (0.0-0.7); #Monocytes 0.85 10x3/uL (0.11-0.59); #Neutrophils 5.38 10x3/uL (1.40-6.50); %Basophils 0.3 % (0.0-1.0); %Eosinophils 2.9 % (0.0-10.0); %Lymphocytes 17.0 % (21.0-51.0); %Monocytes 10.8 % (0.0-10.0); %Neutrophils 68.6 % (42.0-75.0); Hematocrit 41.8 % (36.0-47.0); Hemoglobin 13.0 g/dL (12.0-16.0); Mean Corpuscular Hemoglobin 29.1 pg (27.0-31.0); Mean Corpuscular Volume 93.5 fL (78.0-98.0); Platelet Count 239 10x3/uL (130-400); Red Blood Cell (RBC) Count 4.47 mill/uL (4.20-5.40); White Blood Cell (WBC) Count 7.84 10x3/uL (4.8-10.8)
[2025-01-20 21:52] LABS: ALT (SGPT) 8 U/L (Less than 34); AST (SGOT) 25 U/L (11-34); Albumin 3.7 g/dL (3.1-4.5); Alkaline Phosphatase 77 U/L (40-110); Anion Gap 18 mmol/L (10-20); BUN (Urea Nitrogen) 12 mg/dL (9.8-20.1); Bilirubin, Total 0.9 mg/dL (0.3-1.2); Calc. Creatinine Clearance 0 mL/min (70-130); Calcium 8.5 mg/dL (7.8-10.44); Carbon Dioxide 27 mmol/L (23-31); Chloride 102 mmol/L (98-107); Globulin 3.6 g/dL (2.4-3.5); Glucose 95 mg/dL (83-110); Potassium 4.2 mmol/L (3.5-5.1); Sodium 143 mmol/L (136-145)
[2025-01-20] MEDS ORDERED: Furosemide 40 MG (4 mL) VIAL ONE (22:25)
[2025-01-21] MEDS ORDERED: Melatonin 3 MG TAB PO PRN (00:43)
[2025-01-21 02:36] VITALS: BMI 54.5
[2025-01-21] MEDS: Albuterol 2.5 MG (3 mL) NEB NEB SCH (03:25)
[2025-01-21] MEDS: Acetaminophen 325 MG TAB PO PRN (04:29)
[2025-01-21 04:59] LABS: #Basophils Less than 0.03 10x3/uL (0.0-0.2); #Eosinophils Less than 0.03 10x3/uL (0.0-0.7); #Monocytes 0.06 10x3/uL (0.11-0.59); #Neutrophils 5.99 10x3/uL (1.40-6.50); %Basophils 0.2 % (0.0-1.0); %Eosinophils 0.0 % (0.0-10.0); %Lymphocytes 6.9 % (21.0-51.0); %Monocytes 0.9 % (0.0-10.0); %Neutrophils 91.7 % (42.0-75.0); Hematocrit 44.0 % (36.0-47.0); Hemoglobin 13.7 g/dL (12.0-16.0); Mean Corpuscular Hemoglobin 28.7 pg (27.0-31.0); Mean Corpuscular Volume 92.2 fL (78.0-98.0); Platelet Count 239 10x3/uL (130-400); Red Blood Cell (RBC) Count 4.77 mill/uL (4.20-5.40); White Blood Cell (WBC) Count 6.53 10x3/uL (4.8-10.8)
[2025-01-21 05:26] LABS: ALT (SGPT) Less than 7 U/L (Less than 34); AST (SGOT) 15 U/L (11-34); Albumin 3.8 g/dL (3.1-4.5); Alkaline Phosphatase 79 U/L (40-110); Anion Gap 23 mmol/L (10-20); BUN (Urea Nitrogen) 10 mg/dL (9.8-20.1); Bilirubin, Total 0.9 mg/dL (0.3-1.2); Calc. Creatinine Clearance 155 mL/min (70-130); Calcium 8.8 mg/dL (7.8-10.44); Carbon Dioxide 26 mmol/L (23-31); Chloride 94 mmol/L (98-107); Globulin 4.0 g/dL (2.4-3.5); Glucose 199 mg/dL (83-110); Potassium 3.2 mmol/L (3.5-5.1); Sodium 140 mmol/L (136-145)
[2025-01-21] MEDS: DULoxetine 30 MG CAP PO SCH (09:01)
[2025-01-21] MEDS: HYDROcodone/Acetaminophen 10/325 mg Tablet PO SCH (09:01)
[2025-01-21] MEDS: Losartan 25 MG TAB PO SCH (09:02)
[2025-01-21] MEDS: Apixaban 5 MG TAB PO SCH (09:02)
[2025-01-21] MEDS: Pantoprazole 40 MG DR.TAB PO SCH (09:02)
[2025-01-21] MEDS: Furosemide 20 MG TAB PO SCH (09:02)
[2025-01-21] MEDS: Gabapentin 300 MG CAP PO SCH (09:02)
[2025-01-21] MEDS: predniSONE 20 MG TAB PO SCH (09:02)
[2025-01-21] MEDS: Carvedilol 6.25 MG TAB PO SCH (09:02)
[2025-01-21] MEDS: Albuterol 2.5 MG (3 mL) NEB NEB PRN (15:46)
[2025-01-22 04:42] LABS: #Basophils Less than 0.03 10x3/uL (0.0-0.2); #Eosinophils Less than 0.03 10x3/uL (0.0-0.7); #Monocytes 1.01 10x3/uL (0.11-0.59); #Neutrophils 12.58 10x3/uL (1.40-6.50); %Basophils 0.1 % (0.0-1.0); %Eosinophils 0.0 % (0.0-10.0); %Lymphocytes 5.8 % (21.0-51.0); %Monocytes 7.0 % (0.0-10.0); %Neutrophils 86.7 % (42.0-75.0); Hematocrit 39.6 % (36.0-47.0); Hemoglobin 12.0 g/dL (12.0-16.0); Mean Corpuscular Hemoglobin 28.4 pg (27.0-31.0); Mean Corpuscular Volume 93.6 fL (78.0-98.0); Platelet Count 301 10x3/uL (130-400); Red Blood Cell (RBC) Count 4.23 mill/uL (4.20-5.40); White Blood Cell (WBC) Count 14.50 10x3/uL (4.8-10.8)
[2025-01-22 05:07] LABS: ALT (SGPT) Less than 7 U/L (Less than 34); AST (SGOT) 12 U/L (11-34); Albumin 3.2 g/dL (3.1-4.5); Alkaline Phosphatase 68 U/L (40-110); Anion Gap 13 mmol/L (10-20); BUN (Urea Nitrogen) 22 mg/dL (9.8-20.1); Bilirubin, Total 0.4 mg/dL (0.3-1.2); Calc. Creatinine Clearance 92 mL/min (70-130); Calcium 8.4 mg/dL (7.8-10.44); Carbon Dioxide 28 mmol/L (23-31); Chloride 102 mmol/L (98-107); Globulin 3.8 g/dL (2.4-3.5); Glucose 182 mg/dL (83-110); Potassium 4.0 mmol/L (3.5-5.1); Sodium 139 mmol/L (136-145)
[2025-01-22] MEDS ORDERED: Albuterol 2.5 MG (3 mL) NEB NEB PRN (13:01)
[2025-01-23 04:40] LABS: #Basophils Less than 0.03 10x3/uL (0.0-0.2); #Eosinophils Less than 0.03 10x3/uL (0.0-0.7); #Monocytes 1.02 10x3/uL (0.11-0.59); #Neutrophils 14.03 10x3/uL (1.40-6.50); %Basophils 0.1 % (0.0-1.0); %Eosinophils 0.0 % (0.0-10.0); %Lymphocytes 6.9 % (21.0-51.0); %Monocytes 6.3 % (0.0-10.0); %Neutrophils 86.3 % (42.0-75.0); Hematocrit 41.7 % (36.0-47.0); Hemoglobin 12.3 g/dL (12.0-16.0); Mean Corpuscular Hemoglobin 28.3 pg (27.0-31.0); Mean Corpuscular Volume 95.9 fL (78.0-98.0); Platelet Count 333 10x3/uL (130-400); Red Blood Cell (RBC) Count 4.35 mill/uL (4.20-5.40); White Blood Cell (WBC) Count 16.26 10x3/uL (4.8-10.8)
[2025-01-23 05:10] LABS: ALT (SGPT) 7 U/L (Less than 34); AST (SGOT) 22 U/L (11-34); Albumin 3.5 g/dL (3.1-4.5); Alkaline Phosphatase 70 U/L (40-110); Anion Gap 14 mmol/L (10-20); BUN (Urea Nitrogen) 42 mg/dL (9.8-20.1); Bilirubin, Total 0.5 mg/dL (0.3-1.2); Calc. Creatinine Clearance 83 mL/min (70-130); Calcium 8.7 mg/dL (7.8-10.44); Carbon Dioxide 27 mmol/L (23-31); Chloride 100 mmol/L (98-107); Globulin 4.3 g/dL (2.4-3.5); Glucose 112 mg/dL (83-110); Potassium 5.4 mmol/L (3.5-5.1); Sodium 136 mmol/L (136-145)
[2025-01-23] MEDS: Carvedilol 6.25 MG TAB PO SCH (09:21)
[2025-01-23] MEDS: Famotidine 20 MG TAB PO SCH (14:00)
[2025-01-24 04:21] LABS: #Basophils Less than 0.03 10x3/uL (0.0-0.2); #Eosinophils Less than 0.03 10x3/uL (0.0-0.7); #Monocytes 0.94 10x3/uL (0.11-0.59); #Neutrophils 7.74 10x3/uL (1.40-6.50); %Basophils 0.1 % (0.0-1.0); %Eosinophils 0.0 % (0.0-10.0); %Lymphocytes 13.1 % (21.0-51.0); %Monocytes 9.4 % (0.0-10.0); %Neutrophils 77.1 % (42.0-75.0); Hematocrit 41.0 % (36.0-47.0); Hemoglobin 12.1 g/dL (12.0-16.0); Mean Corpuscular Hemoglobin 28.4 pg (27.0-31.0); Mean Corpuscular Volume 96.2 fL (78.0-98.0); Platelet Count 332 10x3/uL (130-400); Red Blood Cell (RBC) Count 4.26 mill/uL (4.20-5.40); White Blood Cell (WBC) Count 10.04 10x3/uL (4.8-10.8)
[2025-01-24 04:36] LABS: ALT (SGPT) 10 U/L (Less than 34); AST (SGOT) 14 U/L (11-34); Albumin 3.7 g/dL (3.1-4.5); Alkaline Phosphatase 72 U/L (40-110); Anion Gap 14 mmol/L (10-20); BUN (Urea Nitrogen) 42 mg/dL (9.8-20.1); Bilirubin, Total 0.6 mg/dL (0.3-1.2); Calc. Creatinine Clearance 102 mL/min (70-130); Calcium 8.6 mg/dL (7.8-10.44); Carbon Dioxide 29 mmol/L (23-31); Chloride 99 mmol/L (98-107); Globulin 3.7 g/dL (2.4-3.5); Glucose 122 mg/dL (83-110); Potassium 4.8 mmol/L (3.5-5.1); Sodium 137 mmol/L (136-145)
[2025-01-24] MEDS: Albuterol 2.5 MG (3 mL) NEB NEB SCH ×2 (09:05→13:25)
[2025-01-25 04:46] LABS: #Basophils Less than 0.03 10x3/uL (0.0-0.2); #Eosinophils Less than 0.03 10x3/uL (0.0-0.7); #Monocytes 1.01 10x3/uL (0.11-0.59); #Neutrophils 6.17 10x3/uL (1.40-6.50); %Basophils 0.1 % (0.0-1.0); %Eosinophils 0.1 % (0.0-10.0); %Lymphocytes 17.7 % (21.0-51.0); %Monocytes 11.5 % (0.0-10.0); %Neutrophils 70.3 % (42.0-75.0); Hematocrit 38.6 % (36.0-47.0); Hemoglobin 11.4 g/dL (12.0-16.0); Mean Corpuscular Hemoglobin 28.4 pg (27.0-31.0); Mean Corpuscular Volume 96.0 fL (78.0-98.0); Platelet Count 262 10x3/uL (130-400); Red Blood Cell (RBC) Count 4.02 mill/uL (4.20-5.40); White Blood Cell (WBC) Count 8.79 10x3/uL (4.8-10.8)
[2025-01-25 05:04] LABS: ALT (SGPT) 7 U/L (Less than 34); AST (SGOT) 12 U/L (11-34); Albumin 3.1 g/dL (3.1-4.5); Alkaline Phosphatase 61 U/L (40-110); Anion Gap 13 mmol/L (10-20); BUN (Urea Nitrogen) 19 mg/dL (9.8-20.1); Bilirubin, Total 0.7 mg/dL (0.3-1.2); Calc. Creatinine Clearance 175 mL/min (70-130); Calcium 8.2 mg/dL (7.8-10.44); Carbon Dioxide 32 mmol/L (23-31); Chloride 100 mmol/L (98-107); Globulin 3.3 g/dL (2.4-3.5); Glucose 94 mg/dL (83-110); Potassium 4.1 mmol/L (3.5-5.1); Sodium 141 mmol/L (136-145)
[2025-01-25 07:36] LABS: Free T4 (Free Thyroxine) 0.94 ng/dL (0.70-1.48)
[2025-01-25] MEDS: Mometasone 200 MCG/Formoterol 5 MCG 120 PUFF INHALER INH SCH (19:43)
[2025-01-26 04:51] LABS: #Basophils 0.03 10x3/uL (0.0-0.2); #Eosinophils 0.03 10x3/uL (0.0-0.7); #Monocytes 0.99 10x3/uL (0.11-0.59); #Neutrophils 6.30 10x3/uL (1.40-6.50); %Basophils 0.3 % (0.0-1.0); %Eosinophils 0.3 % (0.0-10.0); %Lymphocytes 23.9 % (21.0-51.0); %Monocytes 10.2 % (0.0-10.0); %Neutrophils 64.8 % (42.0-75.0); Hematocrit 38.8 % (36.0-47.0); Hemoglobin 11.7 g/dL (12.0-16.0); Mean Corpuscular Hemoglobin 28.5 pg (27.0-31.0); Mean Corpuscular Volume 94.6 fL (78.0-98.0); Platelet Count 253 10x3/uL (130-400); Red Blood Cell (RBC) Count 4.10 mill/uL (4.20-5.40); White Blood Cell (WBC) Count 9.72 10x3/uL (4.8-10.8)
[2025-01-26 05:07] LABS: ALT (SGPT) Less than 7 U/L (Less than 34); AST (SGOT) 16 U/L (11-34); Albumin 3.1 g/dL (3.1-4.5); Alkaline Phosphatase 60 U/L (40-110); Anion Gap 14 mmol/L (10-20); BUN (Urea Nitrogen) 13 mg/dL (9.8-20.1); Bilirubin, Total 0.9 mg/dL (0.3-1.2); Calc. Creatinine Clearance 171 mL/min (70-130); Calcium 8.5 mg/dL (7.8-10.44); Carbon Dioxide 33 mmol/L (23-31); Chloride 99 mmol/L (98-107); Globulin 3.2 g/dL (2.4-3.5); Glucose 95 mg/dL (83-110); Potassium 4.0 mmol/L (3.5-5.1); Sodium 142 mmol/L (136-145)
[2025-01-26 11:32] VITALS: BP 125/57; TEMP 98.2
== END 2025-01-26 13:50 | disposition home or self-care (01) | DRG 189 ==
LOC: ERS 19:28 → 2NO 23:48 → OBSVTOIN 01-21 16:01
PROVIDERS: ADMIT Student in an Organized Health Care Education/Training Program; ATTEND Student in an Organized Health Care Education/Training Program
DX: J96.01 Acute respiratory failure with hypoxia (principal); J45.901 Unspecified asthma with (acute) exacerbation; I50.32 Chronic diastolic (congestive) heart failure; I11.0 Hypertensive heart disease with heart failure; I48.91 Unspecified atrial fibrillation; E78.5 Hyperlipidemia, unspecified; F41.9 Anxiety disorder, unspecified; F32.A Depression, unspecified; J44.9 Chronic obstructive pulmonary disease, unspecified; E87.6 Hypokalemia; D72.829 Elevated white blood cell count, unspecified; K21.9 Gastro-esophageal reflux disease without esophagitis; Z86.73 Personal history of transient ischemic attack (TIA), and cerebral infarction without residual deficits; Z90.49 Acquired absence of other specified parts of digestive tract; Z98.890 Other specified postprocedural states; Z83.3 Family history of diabetes mellitus; Z82.49 Family history of ischemic heart disease and other diseases of the circulatory system; Z79.51 Long term (current) use of inhaled steroids; Z79.899 Other long term (current) drug therapy; Z87.891 Personal history of nicotine dependence; Z96.653 Presence of artificial knee joint, bilateral; Z99.81 Dependence on supplemental oxygen
CPT/HCPCS: 36415; 71045; 80053; 83880; 84145; 84439; 84443; 84481; 84484; 85025; 87426; 93005; 94640; 94664; 94760; 96374; 96375; G0378; J1940; J2919; J7512; J7611; J7620

== ENCOUNTER 2025-03-10 14:22 | Inpatient (IN) | payer MEDICARE, OTHER ==
[~2025-03-10 14:22] MED LIST changes: +Iopamidol-370 76% 500 ML MDV (1 ML CHARGE) ONE; -Iopamidol-M 300 61% 15 ML VIAL ONE
[2025-03-10 15:13] LABS: #Basophils Less than 0.03 10x3/uL (0.0-0.2); #Eosinophils 0.07 10x3/uL (0.0-0.7); #Monocytes 0.50 10x3/uL (0.11-0.59); #Neutrophils 1.92 10x3/uL (1.40-6.50); %Basophils 0.5 % (0.0-1.0); %Eosinophils 1.7 % (0.0-10.0); %Lymphocytes 38.4 % (21.0-51.0); %Monocytes 12.2 % (0.0-10.0); %Neutrophils 47.0 % (42.0-75.0); Hematocrit 40.8 % (36.0-47.0); Hemoglobin 12.3 g/dL (12.0-16.0); Mean Corpuscular Hemoglobin 28.9 pg (27.0-31.0); Mean Corpuscular Volume 95.8 fL (78.0-98.0); Platelet Count 221 10x3/uL (130-400); Red Blood Cell (RBC) Count 4.26 mill/uL (4.20-5.40); White Blood Cell (WBC) Count 4.09 10x3/uL (4.8-10.8)
[2025-03-10 15:26] LABS: INR-International Normal Ratio 1.2; PTT 26.6 sec (22.9-36.1); Prothrombin Time 15.1 sec (12.0-14.7)
[2025-03-10 16:27] LABS: CAUTI Indications for Culture Alt mental st,lethar; Glucose, Urine (Dipstick) Normal (Negative); Leukocyte 75 Leu/uL (Negative); Protein, Urine (Dipstick) Negative (Neg-Trace); RBC/HPF 0-3 HPF (0-3); Specific Gravity, Urine 1.007 (1.002-1.036)
[2025-03-10 16:29] LABS: Bacteria/HPF 1+ HPF (None Seen)
[2025-03-10 16:31] LABS: Urine Culture Reflex No No
[2025-03-10] MEDS ORDERED: Acetaminophen 500 MG TAB ONE (16:42)
[2025-03-10] MEDS ORDERED: Metoclopramide HCl 10 MG (2 mL) VIAL ONE (16:42)
[2025-03-10] MEDS ORDERED: Aspirin Chewable 81 MG TAB ONE (18:45)
[2025-03-10] MEDS ORDERED: Acetaminophen 325 MG TAB PO PRN (19:31)
[2025-03-10] MEDS ORDERED: hydrALAZINE 20 MG/ML VIAL SLOW IVP PRN (19:32)
[2025-03-10] MEDS ORDERED: FLU (Fluad Triv) 25-26 (65UP)PF 45 MCG/0.5 ML Syringe IM ONE (22:30)
[2025-03-10 23:06] VITALS: BMI 56.5
[2025-03-11] MEDS ORDERED: Albuterol 200 PUFF INH INH PRN (05:25)
[2025-03-11 06:56] LABS: #Basophils Less than 0.03 10x3/uL (0.0-0.2); #Eosinophils 0.07 10x3/uL (0.0-0.7); #Monocytes 0.42 10x3/uL (0.11-0.59); #Neutrophils 2.08 10x3/uL (1.40-6.50); %Basophils 0.5 % (0.0-1.0); %Eosinophils 1.9 % (0.0-10.0); %Lymphocytes 29.3 % (21.0-51.0); %Monocytes 11.4 % (0.0-10.0); %Neutrophils 56.6 % (42.0-75.0); Hematocrit 36.8 % (36.0-47.0); Hemoglobin 11.0 g/dL (12.0-16.0); Mean Corpuscular Hemoglobin 28.5 pg (27.0-31.0); Mean Corpuscular Volume 95.3 fL (78.0-98.0); Platelet Count 217 10x3/uL (130-400); Red Blood Cell (RBC) Count 3.86 mill/uL (4.20-5.40); White Blood Cell (WBC) Count 3.68 10x3/uL (4.8-10.8)
[2025-03-11 07:17] LABS: ALT (SGPT) Less than 7 U/L (Less than 34); AST (SGOT) 12 U/L (11-34); Albumin 3.1 g/dL (3.1-4.5); Alkaline Phosphatase 63 U/L (40-110); Anion Gap 11 mmol/L (10-20); BUN (Urea Nitrogen) 8 mg/dL (9.8-20.1); Bilirubin, Total 0.7 mg/dL (0.3-1.2); Calc. Creatinine Clearance 202 mL/min (70-130); Calcium 8.8 mg/dL (7.8-10.44); Carbon Dioxide 28 mmol/L (23-31); Chloride 108 mmol/L (98-107); Globulin 3.1 g/dL (2.4-3.5); Glucose 92 mg/dL (83-110); Potassium 3.6 mmol/L (3.5-5.1); Sodium 143 mmol/L (136-145)
[2025-03-11 07:18] LABS: ALT (SGPT) Less than 7 U/L (Less than 34); AST (SGOT) 11 U/L (11-34); Albumin 3.1 g/dL (3.1-4.5); Alkaline Phosphatase 62 U/L (40-110); Anion Gap 12 mmol/L (10-20); BUN (Urea Nitrogen) 8 mg/dL (9.8-20.1); Bilirubin, Total 0.8 mg/dL (0.3-1.2); Calc. Creatinine Clearance 202 mL/min (70-130); Calcium 9.0 mg/dL (7.8-10.44); Carbon Dioxide 27 mmol/L (23-31); Cardiac Risk 3.6 (Less than 4.5); Chloride 108 mmol/L (98-107); Cholesterol 195 mg/dl (< 200 Desired); Globulin 3.2 g/dL (2.4-3.5); Glucose 91 mg/dL (83-110); HDL Cholesterol 54 mg/dL (>60 Neg Risk); LDL Cholesterol, Calculated 127 mg/dL; Potassium 3.6 mmol/L (3.5-5.1); Sodium 143 mmol/L (136-145); Triglycerides 72 mg/dL (Less than 150)
[2025-03-11] MEDS: Mometasone 200 MCG/Formoterol 5 MCG 120 PUFF INHALER INH SCH (07:38)
[2025-03-11] MEDS: Furosemide 20 MG TAB PO SCH (08:13)
[2025-03-11] MEDS: Aspirin 81 mg Enteric Coated Tablet PO SCH (08:14)
[2025-03-11] MEDS: Pantoprazole 40 MG DR.TAB PO SCH (08:15)
[2025-03-11] MEDS: Apixaban 5 MG TAB PO SCH (08:15)
[2025-03-11 12:24] VITALS: BP 122/60; TEMP 98.4
== END 2025-03-11 16:50 | disposition home or self-care (01) | DRG 92 ==
LOC: ERS 14:22 → OBS 18:56
PROVIDERS: ADMIT Family Medicine; ATTEND Family Medicine
PROC: 3E0234Z Introduction of Serum, Toxoid and Vaccine into Muscle, Percutaneous Approach (ICD-10-PCS; principal; 2025-03-10)
DX: R20.2 Paresthesia of skin (principal); I50.32 Chronic diastolic (congestive) heart failure; R51.9 Headache, unspecified; K21.9 Gastro-esophageal reflux disease without esophagitis; J44.9 Chronic obstructive pulmonary disease, unspecified; J45.909 Unspecified asthma, uncomplicated; I48.91 Unspecified atrial fibrillation; I11.0 Hypertensive heart disease with heart failure; F41.9 Anxiety disorder, unspecified; F32.A Depression, unspecified; Z96.653 Presence of artificial knee joint, bilateral; E78.5 Hyperlipidemia, unspecified; M19.90 Unspecified osteoarthritis, unspecified site; Z79.01 Long term (current) use of anticoagulants; Z90.49 Acquired absence of other specified parts of digestive tract; Z98.890 Other specified postprocedural states; Z86.73 Personal history of transient ischemic attack (TIA), and cerebral infarction without residual deficits; Z87.891 Personal history of nicotine dependence; Z82.49 Family history of ischemic heart disease and other diseases of the circulatory system; Z79.52 Long term (current) use of systemic steroids; Z79.899 Other long term (current) drug therapy; Z79.890 Hormone replacement therapy; Z23 Encounter for immunization
CPT/HCPCS: 0042T; 36415; 70450; 70496; 70498; 70551; 71045; 80053; 80061; 81001; 83036; 83605; 83880; 84443; 84484; 85025; 85610; 85730; 87086; 87428; 93005; 94760; J2765; Q9967